=== PATIENT | female | born 1985 | race Caucasian/White ===

== ENCOUNTER 2016-04-21 09:34 | Emergency (ER) | payer SELFPAY ==
[2016-04-21 09:57] VITALS: BP 112/68; PULSE 89; RESP 20; TEMP 97.8
--- NOTE | 2016-04-21 10:39 | ED ---
Back Pain HPI - General Chief Complaint: Back Pain/Injury Stated Complaint: back pain Time Seen by Provider: 04/21/16 10:23 Source: patient Limitations: no limitations - History of Present Illness Initial Comments: This 31-year-old white female presents with complaint of some right lower back pain. She states that she was wrestling with her brother yesterday and injured it. She apparently hit the floor and has had pain since. She tried some Motrin with some moderate relief. She denies any chronic back problems. She denies any possibilities. She does not have any paresthesias. She denies any bowel or bladder abnormalities. No other injuries. No other complaints or modifying factors. - Related Data Home Medications Medication Instructions Recorded Confirmed No Known Home Medications [No 04/21/16 04/21/16 Known Home Medications] Allergies Allergy/AdvReac Type Severity Reaction Status Date / Time No Known Allergies Allergy Verified 04/21/16 10:17 Review of Systems ROS Statement: Those systems with pertinent positive or pertinent negative responses have been documented in the HPI. ROS Other: All systems not noted in ROS Statement are negative. Past Medical History Past Medical History: Asthma History of Any Multi-Drug Resistant Organisms: None Reported Past Surgical History: Cholecystectomy Past Psychological History: No Psychological Hx Reported Smoking Status: Current every day smoker Past Alcohol Use History: None Reported Past Drug Use History: None Reported General Exam - General Exam Comments Initial Comments: GENERAL: The patient is well nourished and well hydrated. VITAL SIGNS: Heart rate, blood pressure, respiratory rate reviewed as recorded in nurse's notes. EYES: Pupils are round and reactive. Extraocular movements are intact. No conjunctival / lid redness or swelling. ENT: No external evidence of injury, swelling, or ecchymosis. Airway is patent. Throat is clear. NECK: Nontender. No swelling or evidence of injury. No subcutaneous emphysema. Trachea is midline. No thyroid mass. HEART: Regular rate and rhythm. Good peripheral pulses. LUNGS/CHEST: Breath sounds clear and equal bilaterally. No rales, rhonchi, or wheezes. No ecchymosis, subcutaneous emphysema, or tenderness. ABDOMEN: Abdomen soft without tenderness. No palpable masses or organomegaly. No peritoneal signs. No abdominal wall swelling or ecchymosis. EXTREMITIES: There is some mild tenderness noted to the right lower back in the paraspinal musculature. There is no direct tenderness over the vertebrae. NEUROLOGIC: Sensation is grossly intact. Cranial nerve exam reveals face is symmetrical, tongue is midline, speech is clear. Patellar reflex intact bilaterally. SKIN: No abrasions or ecchymosis is noted. No induration or masses noted. PSYCHIATRIC: Alert and oriented. Appropriate behavior and judgment. Limitations: no limitations Course Vital Signs 04/21/16 09:53 Temperature 97.8 F Pulse Rate 89 Respiratory 20 Rate Blood Pressure 112/68 O2 Sat by Pulse 98 Oximetry Medical Decision Making - Medical Decision Making The patient was seen and examined. An x-ray was completed of the lumbar spine. No fracture or acute osseous abnormality is identified per my review. The patient refuses any pain medications. Is felt as though she does have a lumbar strain. It is felt as though she is stable for discharge. She is counseled regarding her diagnosis in detail and leaves in no distress. She refused any pain medications for home stating that she'll just take [id number] Motrin. Disposition Clinical Impression: Strain of lumbar region Disposition: HOME SELF-CARE Instructions: Acute Low Back Pain (ED) Referrals: None,Stated [Primary Care Provider] - 04/26/16 Time of Disposition: 11:07
--- NOTE | 2016-04-21 11:08 | XR ---
EXAM TYPE: LUMBAR SPINE X RAY SERIES COMPARISON: NONE HISTORY: Pain FINDINGS: Alignment is anatomic. The pedicles are intact. The transverse processes are intact. There is no s pondylolysis or spondylolisthesis. Surgical clips in the right upper quadrant noted. IMPRESSION: 1. No acute process.
== END 2016-04-21 11:47 | disposition home or self-care (01) ==
LOC: EC 09:34
DX: S39.012A Strain of muscle, fascia and tendon of lower back, initial encounter (principal); Y93.72 Activity, wrestling; F17.200 Nicotine dependence, unspecified, uncomplicated
CPT/HCPCS: 72100; 99283